=== PATIENT | female | born 1985 | race Caucasian/White ===

== ENCOUNTER 2023-06-25 11:23 | Emergency (ER) | payer OTHER, SELFPAY ==
[2023-06-25 11:25] VITALS: BP 123/102
--- NOTE | 2023-06-25 12:10 | ED.GENMED ---
History of Present Illness
General
Chief Complaint: Musculo-Skeletal Complaint
Time Seen by Provider: 06/25/23 11:32
Travel History
Have you had any contact with someone who has COVID-19?: No
Do you have any symptoms of coronavirus? Fever > 100 degrees, chills, cough, shortness of breath, sore throat, loss of taste or smell, muscle aches, or headache?: No
History of Present Illness
History of Present Illness:
37-year-old female presents the emergency department for evaluation of right knee pain. 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 She feels very
unstable and she tends to bear weight but does not have severe amount of pain. Pain is predominately to the lateral knee. No other injuries noted
Review of Systems
Review of Systems
Allergies reviewed?: Yes
All Other Systems: ROS reviewed and negative except as documented in HPI and ROS
Phy Exam
Physical Exam
Physical Exam:
GEN: Well appearing, NAD, WDWN
HEENT: Oral mucosa moist, no scleral icterus
Cardiac: Regular rate
Lung: No respiratory distress, no tachypnea
MSK: No gross deformity or injuries. Right knee range of motion normal. No crepitus, no obvious joint laxity with varus or valgus stress testing. Negative grind test. No joint effusion
Skin: Good color, no pallor or jaundice, no rashes
Neuro: AO x3, moves all extremities freely
Psych: Calm, cooperative
Course
Orders/Labs/Results
Orders:
Orders
06/25/23 11:29
Knee, Right 4 or More Views [CR Knee- Right 4 Or More View*] Urgent
Comment:
Reason For Exam: pain injury
06/25/23 12:10
Knee Immobilizer Right-Treatme ONCE
Vital Signs
Initial and Last Documented VS:
Initial Vital Signs
Temp Pulse Resp BP Pulse Ox
98.1 F 84 16 123/102 99
06/25/23 11:25 06/25/23 11:25 06/25/23 11:25 06/25/23 11:25 06/25/23 11:25
Last Documented Vital Signs
Temp Pulse Resp BP Pulse Ox
98.1 F 84 16 123/102 99
06/25/23 11:25 06/25/23 11:25 06/25/23 11:25 06/25/23 11:25 06/25/23 11:25
MDM/Problems Addressed
MDM/Problems Addressed:
Exam is reassuring, x-rays independently interpreted by me are negative for acute osseous abnormality. Placed in knee immobilizer for stability purposes recommend outpatient orthopedic follow-up
*Critical Care Note
Total Time (30-74mins, 75-104mins- exclusive of procedures): Not Applicable
ED Attending Note
-
Portions of this chart may have been created with voice recognition software.� Occasional wrong word or��sound alike� substitutions may have occurred due to the inherent limitations of voice recognition software.
Discharge Plan
Departure
Patient Disposition: Home (Routine Discharge)
Date of Disposition: 06/25/23
Time of Disposition: 12:11
Patient with high blood pressure during this ER visit?: No
Discharge Problem:
Right knee sprain
Instructions: Knee Sprain (DC)
Prescriptions:
No Action
Vitamin Tablet
1 tab PO DAILY
acetaminophen 325 MG tablet
650 mg PO Q4HPRN PRN (Reason: mild pain) 0RF
sennosides-docusate sodium 1 TABLET tablet
1 tab PO DAILYPRN PRN (Reason: constipation) Qty: 30 0RF
ibuprofen 600 MG tablet
600 mg PO Q6HPRN PRN (Reason: cramps) Qty: 60 0RF
Referrals:
Ronel Prabhakar MD, Resident [Family Provider] -
Maida Roy, DO [Active] -
Activity Restrictions/Additional Instructions:
Ibuprofen 600mg every 6-8 hours as needed
Follow up with Ortho
You may work while wearing the knee immobilizer if pain allows
Interventions
Interventions:
*Risk Screen - Suicide Last Done: 06/25/23 11:25
*Neglect/Abuse Screening Last Done: 06/25/23 11:25
ED- Fall Risk Assessment Last Done: 06/25/23 12:34
*ED COVID-19 Vaccine History Last Done: 06/25/23 11:25
*Nursing Disposition Last Done: 06/25/23 12:57
ED-Musculoskeletal Assessment Last Done: 06/25/23 12:34
Discharge Date and Time
Discharge Date/Time: 06/25/23 12:57
== END 2023-06-25 12:57 | disposition home or self-care (01) ==
LOC: EMR 11:23
PROVIDERS: EMERGENCY PHYSICIAN Emergency Medicine; FAMILY PHYSICIAN Student in an Organized Health Care Education/Training Program
DX: S83.91XA Sprain of unspecified site of right knee, initial encounter (principal); W55.12XA Struck by horse, initial encounter; Y99.0 Civilian activity done for income or pay
CPT/HCPCS: 99283; 73564